=== PATIENT | male | born 1955 | race Caucasian/White ===

== ENCOUNTER 2023-12-08 14:49 | Emergency (ER) | payer BC, OTHER ==
[2023-12-08] MEDS ORDERED: MORPHINE 4 MG/ML SYR ONE (15:11)
--- NOTE | 2023-12-08 16:29 | RAD REPORT ---
EXAM DESCRIPTION: RAD - Hip Left 2 View - 12/08/2023 4:19 pm CLINICAL HISTORY: PAIN COMPARISON: No comparisons FINDINGS/IMPRESSION: No acute fracture. No malalignment. No significant focal degenerative changes.
--- NOTE | 2023-12-08 16:30 | RAD REPORT ---
EXAM DESCRIPTION: RAD - Pelvis - 12/08/2023 4:19 pm CLINICAL HISTORY: fall COMPARISON: No comparisons FINDINGS/IMPRESSION: No acute fracture. No malalignment. No significant focal degenerative changes.
--- NOTE | 2023-12-08 16:32 | RAD REPORT ---
EXAM DESCRIPTION: RAD - Hand Left 3 View - 12/08/2023 4:20 pm CLINICAL HISTORY: PAIN COMPARISON: No comparisons FINDINGS/IMPRESSION: No acute fracture. No malalignment. No significant focal degenerative changes. Small linear radiopaque body between the second and third fingers.
--- NOTE | 2023-12-08 16:38 | RAD REPORT ---
EXAM DESCRIPTION: RAD - Humerus Left - 12/08/2023 4:19 pm CLINICAL HISTORY: PAIN COMPARISON: Chest Single View dated 12/08/2023 FINDINGS/IMPRESSION: Comminuted multipart left proximal humerus fracture which is displaced. Based o n these views, cannot confirm or exclude a left shoulder fracture/ dislocation.
--- NOTE | 2023-12-08 16:38 | RAD REPORT ---
EXAM DESCRIPTION: RAD - Chest Single View - 12/08/2023 4:19 pm CLINICAL HISTORY: fall COMPARISON: No comparisons FINDINGS: Lines: None. Lungs: No evidence of edema or pneumonia. Pleural: No significant pleural effusions or pneumothorax. Cardiac: The heart size is within normal limits. Mediastinum: Within normal limits. Bones: No acute fractures. Other: None IMPRESSION: No acute cardiopulmonary disease.
[2023-12-08] MEDS ORDERED: NA CHLORIDE 0.9% 1,000 ML ONE (16:56)
[2023-12-08] MEDS ORDERED: HYDROMORPHONE HCL 1 MG/ML INJ ONE ×2 (16:56→19:10)
--- NOTE | 2023-12-08 17:46 | RAD REPORT ---
EXAM DESCRIPTION: CT - Head C Spine Cap Wo Con - 12/08/2023 5:23 pm CLINICAL HISTORY: Trauma, head and neck injury. Chest, abdomen and pelvis pain. fall from chair COMPARISON: No comparisons TECHNIQUE: CT head without contrast. CT cervical spine without contrast with coronal and sagittal reformatted images. CT chest, abdomen and pelvis with coronal and sagittal reformatted images of the spine. All CT scans are performed using dose optimization technique as appropriate and may include automated exposure control or mA/KV adjustment according to patient size. FINDINGS: CT HEAD WITHOUT CONTRAST: No intracranial hemorrhage, hydrocephalus or extra-axial fluid collection. No acute large vascular te rritory infarct. Mild thickening right maxillary sinus. The calvarium is intact. CT CERVICAL SPINE WITHOUT CONTRAST: No fracture or subluxation. The prevertebral soft tissues are normal in thickness. CT CHEST, ABDOMEN, PELVIS: Thorax: Chest Wall: No abnormal mass Lungs: Scattered sub 4 mm pulmonary nodules that are almost certainly benign. Pleura: No effusions or pneumothorax. Daily/Mediastinum: No lymphadenopathy. Aorta/Pulmonary Arteries: Unremarkable Heart: Normal size. Abdomen/Pelvis: Liver: No acute abnormality or suspicious lesions. Biliary: No biliary ductal dilatation. Stomach: No significant focal abnormality. Duodenum: No significant focal abnormality. Pancreas: No significant abnormality. Spleen: No significant abnormality. Adrenal: No suspicious lesions. Kidney/ureter: No hydronephrosis. No renal calculi. Retroperitoneum: No retroperitoneal adenopathy. Vascular: No aneurysm. Bowel: No significant focal abnormality. Peritoneum: No ascites or free air. Bladder: Grossly unremarkable. Reproductive: No adnexal masses. Bones: Comminuted fracture and dislocation of the left proximal humerus. The humeral head is dislocat ed anteriorly.The bony glenoid is fractured anteriorly. Other: n/a IMPRESSION: Comminuted left proximal humerus fracture/dislocation. The glenoid is also fractured. N o other evidence of significant trauma identified .
[2023-12-08 17:50] LABS: Absolute Lymphocytes (CBC) 1.6 K/uL (0.7-4.9); Absolute Monocytes 0.7 K/uL (0.1-1.3); Absolute Neutrophil 15.2 K/uL (1.8-8.0); Basophils % 0.1 % (0-1.3); Eosinophils % 0.1 % (0-4.4); Hematocrit 52.1 % (39.6-49.0); Hemoglobin 16.9 g/dL (13.6-17.9); Lymphocytes % 9.3 % (15.3-44.8); MCH 29.9 pg (27.0-35.0); MCHC 32.4 g/dL (32.0-36.0); MCV 92.5 fL (80-100); MPV 8.5 fL (7.6-11.3); Neutrophils % 86.5 % (41.7-73.7); Platelets 246 thou/uL (152-406); RBC Red Blood Cell Count 5.64 M/uL (4.33-5.43); Red Cell Distribution Width 13.7 % (12.1-15.2)
[2023-12-08 17:57] LABS: PT Prothrombin Time 12.2 SECONDS (9.4-12.5); PTT, Activated Partial Thromb 32.6 SECONDS (24.3-36.9); Protime INR 1.11
--- NOTE | 2023-12-08 18:07 | ER ---
Nurse's Notes [facility] Name: Alberto Plascencia Age: 68 yrs Sex: Male : 1955 Arrival Date: 12/08/2023 Time: 14:49 Bed 15 Private MD: Diagnosis: Left Shoulder Fracture and Dislocation;Fall from chair, initial encounter Presentation: 12/07 14:54 Chief complaint: Patient states: stood on a chair with wheels and fell on left shoulder ko1 and left hip. Coronavirus screen: At this time, the client does not indicate any symptoms associated with coronavirus-19. Ebola Screen: No symptoms or risks identified at this time. Initial Sepsis Screen: Does the patient meet any 2 criteria? No. Patient's initial sepsis screen is negative. Does the patient have a suspected source of infection? No. Patient's initial sepsis screen is negative. Risk Assessment: Do you want to hurt yourself or someone else? Patient reports no desire to harm self or others. Onset of symptoms was December 08, 2023. Mechanism of Injury: Fall desk chair. 14:54 Method Of Arrival: Wheelchair ko1 14:54 Acuity: HEATHER 3 ko1 Triage Assessment: 14:59 General: Appears in no apparent distress. Behavior is calm, cooperative, appropriate ko1 for age. Pain: Complains of pain in left shoulder and left hip. Musculoskeletal: Bony deformity noted of anterior aspect of left shoulder Reports pain in left shoulder and left hip. 14:59 Injury Description: Deformity sustained to anterior aspect of left shoulder is ko1 displaced, was sustained 30-60 minutes ago. 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 - Infectious Disease History:: Denies. - Social history:: Smoking status: Patient denies any tobacco usage or history of. Screenin:05 [facility] ED Fall Risk Assessment (Adult) History of falling in the last 3 months, rs5 including since admission No falls in past 3 months (0 pts) Confusion or Disorientation No (0 pts) Intoxicated or Sedated No (0 pts) Impaired Gait No (0 pts) Mobility Assist Device Used No (0 pt) Altered Elimination No (0 pt) Score/Fall Risk Level 0 - 2 = Low Risk Oriented to surroundings, Maintained a safe environment. Abuse screen: Denies threats or abuse. Nutritional screening: No deficits noted. Tuberculosis screening: No symptoms or risk factors identified. Assessment: 15:05 General: Appears distressed, uncomfortable, Behavior is calm, cooperative. Pain: rs5 Complains of pain in left shoulder Pain currently is 9 out of 10 on a pain scale. Quality of pain is described as aching, Is continuous. Neuro: Level of Consciousness is awake, alert, obeys commands, Oriented to person, place, time, situation. Cardiovascular: Patient's skin is warm and dry. Respiratory: Airway is patent Respiratory effort is even, unlabored, Respiratory pattern is regular, symmetrical. GI: Abdomen is round non-distended, Abd is soft and non tender X 4 quads. : EENT: No signs and/or symptoms were reported regarding the EENT system. Derm: Skin is intact, Skin is pink, warm \T\ dry. Musculoskeletal: Range of motion: limited in left shoulder. 15:40 Reassessment: Patient and/or family updated on plan of care and expected duration. Pain rs5 level reassessed. Patient is alert, oriented x 3, equal unlabored respirations, skin warm/dry/pink. Patient states feeling better. 16:20 Pain: Complains of pain in left shoulder Pain currently is 9 out of 10 on a pain scale. rs5 Quality of pain is described as aching, Is continuous. 17:25 Reassessment: Patient and/or family updated on plan of care and expected duration. Pain rs5 level reassessed. Patient is alert, oriented x 3, equal unlabored respirations, skin warm/dry/pink. 19:15 General: Appears in no apparent distress. uncomfortable, well groomed, Behavior is pc2 calm, cooperative. Pain: Complains of pain in left shoulder Pain currently is 7 out of 10 on a pain scale. Neuro: Level of Consciousness is awake, alert, Oriented to person, place, time, situation. Cardiovascular: Patient's skin is warm and dry. Respiratory: Airway is patent Respiratory effort is even, unlabored, Respiratory pattern is regular, symmetrical. GI: Abdomen is non-distended. : No signs and/or symptoms were reported regarding the genitourinary system. EENT: No signs and/or symptoms were reported regarding the EENT system. Derm: No signs and/or symptoms reported regarding the dermatologic system. Derm: No signs and/or symptoms reported regarding the dermatologic system. Musculoskeletal: Capillary refill < 3 seconds. Vital Signs: 14:54 BP 140 / 81; Pulse 84; Resp 18; Temp 98; Pulse Ox 97% ; ko1 17:26 BP 130 / 77; Pulse 70; Resp 17; Pulse Ox 99% on R/A; rs5 18:28 Weight 111.13 kg; Height 6 ft. 0 in. ; ll1 19:16 BP 133 / 85; Pulse 98; Resp 18; Pulse Ox 94% on R/A; pc2 18:28 Body Mass Index 33.23 (111.13 kg, 182.88 cm) ll1 ED Course: 14:50 Patient arrived in ED. ra3 14:54 Dhaval Pepe PA is PHCP. cp 14:54 Baljinder Huynh MD is Attending Physician. cp 14:59 Triage completed. ko1 14:59 Arm band placed on right wrist. Patient placed in an exam room, on a stretcher, on ko1 pulse oximetry, Patient notified of wait time. 15:05 Patient has correct armband on for positive identification. Placed in gown. Bed in low rs5 position. Call light in reach. Side rails up X2. 15:10 Inserted saline lock: 20 gauge in right antecubital area, using aseptic technique. rs5 Blood collected. 15:18 Lee Mckeon, RN is Primary Nurse. rs5 16:21 XRAY Humerus LEFT In Process Unspecified. EDMS 16:21 XRAY Chest (1 view) In Process Unspecified. EDMS 16:21 XRAY Pelvis In Process Unspecified. EDMS 16:21 XRAY Hip LEFT 2 view In Process Unspecified. EDMS 16:21 XRAY Hand LEFT 3 View In Process Unspecified. EDMS 17:24 CT Traumagram (Head C Spine CAP wo con) In Process Unspecified. EDMS 17:25 No provider procedures requiring assistance completed. rs5 18:15 Began initiation by calling Juan Pablo Antunez. ty 18:19 Call answered by Andrey Carbajal. ty 18:32 Called for [id number]. ty 18:37 Admin approval given. ty 18:37 [facility] called for transport. ty 19:07 Primary Nurse role handed off by Lee Mckeon, RN rv1 20:00 Provided Education on: reason for transfer. pc2 20:11 Patient transferred, IV remains in place. pc2 Administered Medications: 15:18 Drug: morphine IVP or IV 4 mg IVP once over 4 mins Route: IVP; Infused Over: 4 mins; rs5 Site: right antecubital; 15:40 Follow up: Response: No adverse reaction; Pain is decreased rs5 16:30 Drug: HYDROmorphone IVP 1 mg IVP once Route: IVP; Site: right antecubital; rs5 17:01 Follow up: Response: No adverse reaction; Pain is decreased rs5 19:19 Follow up: Response: No adverse reaction; RASS: Alert and Calm (0) pc2 16:31 Drug: NS 0.9% IV 1000 ml IV at 999 bolus Per protocol Route: IV; Rate: 999 bolus; Site: rs5 right antecubital; 17:47 Follow up: IV Status: Completed infusion; IV Intake: 999ml rs5 19:19 Follow up: Response: No adverse reaction; IV Status: Completed infusion; IV Intake: pc2 1000ml 19:14 Drug: HYDROmorphone IVP 1 mg IVP once Route: IVP; Site: right antecubital; pc2 20:20 Follow up: Response: No adverse reaction pc2 Medication: 17:25 VIS not applicable for this client. rs5 Intake: 17:47 IV: 999ml; Total: 999ml. rs5 19:19 IV: 1000ml; Total: 1999ml. pc2 Outcome: 18:07 ER care complete, transfer ordered by . cp 20:11 Transferred by ground EMS to [facility], Transfer form completed. X-rays sent pc2 w/ patient. 20:11 Condition: stable 20:22 Patient left the ED. pc2 Signatures: Dispatcher [employer] EDMS Dhaval Pepe PA PA cp Lewis, Lynsay RN RN ll1 Andreina Saldana RN RN ko1 Ramona Sagastume rv1 Lee Mckeon, RN RN rs5 Gita Garcia ra3 Nasim Morataya Pam, RN RN pc2 Corrections: (The following items were deleted from the chart) 15:00 14:59 PMHx: None; ko1 ko1 19:12 18:19 Call answered by ty ty
--- NOTE | 2023-12-08 18:07 | EDPHYS ---
Physician Documentation [facility] Name: Alberto Plascencia Age: 68 yrs Sex: Male : 1955 Arrival Date: 12/08/2023 Time: 14:49 Bed 15 Private MD: ED Physician Baljinedr Huynh HPI: 12/07 15:10 This 68 yrs old Male presents to ER via Wheelchair with complaints of Shoulder Injury. cp 15:10 The patient or guardian complains of decreased range of motion, an injury, pain, that cp is acute. 15:10 left shoulder and left upper arm. Context: The problem was sustained at home, resulted cp from a fall, approximately 8 feet while standing on top of chair with wheels, The patient notes a deformity, a deltoid step-off. 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 - Infectious Disease History:: Denies. - Social history:: Smoking status: Patient denies any tobacco usage or history of. ROS: 15:20 MS/extremity: Positive for injury or acute deformity, decreased range of motion, pain, cp of the left shoulder, 15:20 Neck: Negative for pain with movement, pain at rest, stiffness, cp 15:20 Neuro: Negative for altered mental status, headache, loss of consciousness, syncope, 15:20 All other systems are negative, Exam: 15:25 Constitutional: The patient appears in no acute distress, alert, awake, cp non-diaphoretic, non-toxic, well developed, well nourished, uncomfortable, 15:25 Head/Face: Normocephalic, atraumatic. cp 15:25 Eyes: Periorbital structures: appear normal, Pupils: equal, round, and reactive to light and accomodation, Extraocular movements: intact throughout, Lids and lashes: appear normal, bilaterally, 15:25 Neck: C-spine: vertebral tenderness, is not appreciated, crepitus, is not appreciated, ROM/movement: is normal, is supple, without pain, no range of motions limitations, 15:25 Chest/axilla: Inspection: normal, Palpation: is normal, no crepitus, no tenderness, 15:25 Cardiovascular: Rate: normal, Pulses: Pulses are 2+ in right radial artery and left radial artery. 15:25 Respiratory: the patient does not display signs of respiratory distress, Respirations: normal, no use of accessory muscles, 15:25 Abdomen/GI: Inspection: abdomen appears normal, Palpation: abdomen is soft and non-tender, in all quadrants, 15:25 Back: pain, that is mild, of the lumbar area, 15:25 Musculoskeletal/extremity: Extremities: noted in the left shoulder: decreased ROM, deformity, pain, 15:25 Neuro: Orientation: to person, place \T\ time. Mentation: is normal, Vital Signs: 14:54 BP 140 / 81; Pulse 84; Resp 18; Temp 98; Pulse Ox 97% ; ko1 17:26 BP 130 / 77; Pulse 70; Resp 17; Pulse Ox 99% on R/A; rs5 18:28 Weight 111.13 kg; Height 6 ft. 0 in. ; ll1 19:16 BP 133 / 85; Pulse 98; Resp 18; Pulse Ox 94% on R/A; pc2 18:28 Body Mass Index 33.23 (111.13 kg, 182.88 cm) ll1 MDM: 15:04 Patient medically screened. cp 18:06 Data reviewed: vital signs, nurses notes, radiologic studies, CT scan, plain films. cp 07/ 16:31 Order name: Basic Metabolic Panel; Complete Time: 18:33 cp 07/04 16:31 Order name: CBC with Diff; Complete Time: 18:33 cp 07/ 16:31 Order name: Type And Screen; Complete Time: 18:33 cp 07/04 16:31 Order name: PT-INR; Complete Time: 18:03 cp 07/04 16:31 Order name: Ptt, Activated; Complete Time: 18:03 cp 07/04 17:56 Order name: CBC Smear Scan; Complete Time: 18:33 EDMS 07/ 15:08 Order name: XRAY Humerus LEFT; Complete Time: 18:03 cp 07/04 18:35 Interpretation: Report reviewed. cp 07/04 15:08 Order name: XRAY Chest (1 view); Complete Time: 18:03 cp 07/ 15:20 Order name: XRAY Pelvis; Complete Time: 18:03 cp 07/04 15:20 Order name: XRAY Hip LEFT 2 view; Complete Time: 18:03 cp 12/07 15:21 Order name: XRAY Hand LEFT 3 View; Complete Time: 18:03 cp 12/07 16:31 Order name: CT Traumagram (Head C Spine CAP wo con); Complete Time: 18:03 cp 12/07 15:08 Order name: IV; Complete Time: 15:19 cp 12/07 16:31 Order name: Labs collected and sent; Complete Time: 17:16 cp 12/07 18:03 Order name: Sling; Complete Time: 18:30 cp Administered Medications: 15:18 Drug: morphine IVP or IV 4 mg IVP once over 4 mins Route: IVP; Infused Over: 4 mins; rs5 Site: right antecubital; 15:40 Follow up: Response: No adverse reaction; Pain is decreased rs5 16:30 Drug: HYDROmorphone IVP 1 mg IVP once Route: IVP; Site: right antecubital; rs5 17:01 Follow up: Response: No adverse reaction; Pain is decreased rs5 19:19 Follow up: Response: No adverse reaction; RASS: Alert and Calm (0) pc2 16:31 Drug: NS 0.9% IV 1000 ml IV at 999 bolus Per protocol Route: IV; Rate: 999 bolus; Site: rs5 right antecubital; 17:47 Follow up: IV Status: Completed infusion; IV Intake: 999ml rs5 19:19 Follow up: Response: No adverse reaction; IV Status: Completed infusion; IV Intake: pc2 1000ml 19:14 Drug: HYDROmorphone IVP 1 mg IVP once Route: IVP; Site: right antecubital; pc2 20:20 Follow up: Response: No adverse reaction pc2 Disposition: 12/08 10:25 Co-signature as Attending Physician, Baljinder Huynh MD I agree with the assessment and rn plan of care. I reviewed the patient's care provided by the Advanced Practice Provider and agree with the diagnosis and treatment plan. Disposition Summary: 12/08/23 18:07 Transfer Ordered Notes: Transfer Location: [facility] cp Reason: Higher level of care cp Condition: Stable cp Problem: new cp Symptoms: have improved cp Accepting Physician: Doctor(12/08/23 20:22) pc2 Diagnosis - Left Shoulder Fracture and Dislocation cp - Fall from chair, initial encounter cp Forms: - Medication Reconciliation Form cp - SBAR form cp Signatures: Dispatcher [employer] EDMS Baljinder Huynh MD MD rn Page, Corey, PA PA cp Vinh Forrester, RN RN bp Andreina Saldana, YURY RN ko1 Lee Mckeon RN RN rs5 Cathy Barnes, RN RN pc2 Corrections: (The following items were deleted from the chart) 12/07 15:00 14:59 PMHx: None; ko1 ko1 15:08 15:08 Chest Single View+RAD.RAD.BRZ ordered. EDMS EDMS 16:32 16:32 BASIC METABOLIC PANEL+C.LAB.BRZ ordered. EDMS EDMS 16:32 16:32 CBC+H.LAB.BRZ ordered. EDMS EDMS 16:32 16:32 TYPE AND SCREEN+BB.LAB.BRZ ordered. EDMS EDMS 16:32 16:32 PROTIME (+INR)+COAG.LAB.BRZ ordered. EDMS EDMS 16:32 16:32 PTT, ACTIVATED+COAG.LAB.BRZ ordered. EDMS EDMS 20:22 18:07 Doctor cp pc2
[2023-12-08 18:27] LABS: Blood Morphology Comment NOT SEEN (NOT SEEN); Platelet Estimate ADEQ; White Blood Cell Scan OK (OK)
[2023-12-08 20:38] VITALS: TEMP 98
[2023-12-08 20:52] VITALS: BP 133/85; O2SAT 94
== END 2023-12-08 20:22 | disposition short-term general hospital (02) ==
LOC: ER 14:49
DX: S42.92XA Fracture of left shoulder girdle, part unspecified, initial encounter for closed fracture (principal); W07.XXXA Fall from chair, initial encounter; Z21 Asymptomatic human immunodeficiency virus [HIV] infection status
CPT/HCPCS: 96361; 85025; 80048; 36415; 86900; 86850; 85610; 86901; 85730; 70450; 71250; 72125; 71045; 72170; 73130; 73502; 73060; 96375; 96374; 99285; J1170 ×2; J7030